=== PATIENT | female | born 1960 ===

== ENCOUNTER 2022-09-22 09:45 | Inpatient (IN) | payer OTHER ==
[~2022-09-22] VITALS: Ht 157.5 cm; Wt 92.5 kg
[2022-09-22] MEDS ORDERED: NEURI PO (12:50)
[2022-09-22] MEDS ORDERED: FUSION PLUS CA1 EACH PO (12:50)
[2022-09-22] MEDS ORDERED: CHILDREN'S ASPI81 MG PO (12:50)
[2022-09-22] MEDS ORDERED: MICARDIS80 MG PO (12:50)
[2022-09-22] MEDS ORDERED: TOPROL XL200 MG PO (12:51)
[2022-09-22] MEDS ORDERED: HYDROCHLOROTH12.5 MG PO (12:51)
[2022-09-22] MEDS ORDERED: ATORVASTATIN CA20 MG PO (12:52)
[2022-09-22] MEDS ORDERED: NORVASC5 MG PO (12:52)
[2022-09-22] MEDS ORDERED: SYNJARDY 12.5-1 EACH PO (12:52)
[2022-09-22] MEDS ORDERED: MULTIPLE VITAM1 EAC2 PO (12:53)
[2022-09-22] MEDS ORDERED: VITAMIN D PO (12:53)
[2022-09-22] MEDS ORDERED: OZEMPIC1 MG/0.71 (12:54)
[2022-09-22] MEDS ORDERED: LANTUS SOL100 UNIT/1 (12:54)
== END 2022-09-30 15:22 | disposition home or self-care (01) | DRG 331 ==
LOC: SURH 09-26 05:45 → O/R 09-26 05:45 → SURG 09-26 07:00 → SURH 09-26 13:18
PROVIDERS: ADMIT Colon & Rectal Surgery; ATTEND Colon & Rectal Surgery
PROC: 07BB4ZZ Excision of Mesenteric Lymphatic, Percutaneous Endoscopic Approach (ICD-10-PCS; 2022-09-26)
PROC: 0WQF4ZZ Repair Abdominal Wall, Percutaneous Endoscopic Approach (ICD-10-PCS; 2022-09-26)
PROC: 3E0F7SF Introduction of Other Gas into Respiratory Tract, Via Natural or Artificial Opening (ICD-10-PCS; 2022-09-26)
PROC: 0DTF4ZZ Resection of Right Large Intestine, Percutaneous Endoscopic Approach (ICD-10-PCS; principal; 2022-09-26 07:00)
DX: C18.4 Malignant neoplasm of transverse colon (principal); K43.9 Ventral hernia without obstruction or gangrene; R59.0 Localized enlarged lymph nodes; I11.9 Hypertensive heart disease without heart failure; E11.9 Type 2 diabetes mellitus without complications; Z79.4 Long term (current) use of insulin

== ENCOUNTER 2023-02-16 10:34 | Outpatient (CLI) | payer OTHER ==
[~2023-02-16 10:34] MED LIST: ATORVASTATIN CA20 MG PO; CHILDREN'S ASPI81 MG PO; FUSION PLUS CA1 EACH PO; HYDROCHLOROTH12.5 MG PO; LANTUS SOL100 UNIT/1; MICARDIS80 MG PO; MULTIPLE VITAM1 EAC2 PO; NEURI PO; NORVASC5 MG PO; OZEMPIC1 MG/0.71; SYNJARDY 12.5-1 EACH PO; TOPROL XL200 MG PO; VITAMIN D PO
== END 2023-02-16 10:50 | disposition home or self-care (01) ==
LOC: SONOGRAMA 10:34
DX: E04.9 Nontoxic goiter, unspecified (principal)

== ENCOUNTER 2023-04-16 10:45 | Outpatient (CLI) | payer OTHER | END 2023-04-16 10:48 | disposition home or self-care (01) | LOC: SONOGRAMA 10:45 | PROVIDERS: ATTEND Pathology Anatomic Pathology & Clinical Pathology | DX: D34 Benign neoplasm of thyroid gland (principal); E04.9 Nontoxic goiter, unspecified ==